=== PATIENT | female | born 1970 | race Caucasian/White ===

== ENCOUNTER → 2019-10-22 | Outpatient (CLI) | payer BC ==
--- NOTE | 2019-10-22 15:55 | REPMRS ---
Patient History The patient states she had a clinical breast exam in August 2019. Patient is postmenopausal. Family history of lung cancer in father. VOLPARA DENSITY B. 3D TOMOSYNTHESIS WAS PERFORMED. The Clarita Guerrero lifetime risk for breast cancer is 7.0%. Digital Woman Screen Mammo: October 22, 2019 - Exam #: [id number] Bilateral CC and MLO view(s) were taken. Technologist: Rosina Kowalski Technologist FINDINGS: There are scattered fibroglandular densities. There is no evidence of cancer on this mammogram. Assessment: BI-RADS/ACR category 2 mammogram. Benign Findings. Recommendation Routine screening mammogram of both breasts in 1 year (for women over age 40). This mammogram was interpreted with the aid of an FDA-approved computer-aided dectection system. Electronically Signed By: Meek No MD 10/22/19 [id number]
== END ==
LOC: M WHC 14:55
PROVIDERS: ATTEND Nurse Practitioner Women's Health
DX: Z12.31 Encounter for screening mammogram for malignant neoplasm of breast (principal)

== ENCOUNTER → 2020-01-24 | Outpatient (REF) | payer BC | LOC: M LAB REF 09:47 | PROVIDERS: ATTEND Orthopaedic Surgery | DX: R22.31 Localized swelling, mass and lump, right upper limb (principal) ==